=== PATIENT | male | born 1995 | race Caucasian/White ===

== ENCOUNTER 2022-03-23 10:39 | Emergency (ER) | payer SELFPAY ==
[2022-03-23] MEDS ORDERED: Morphine 4 MG/ML VIAL ONE ×2 (11:18→12:36)
[2022-03-23] MEDS ORDERED: Ketorolac Tromethamine 30 MG/ML VIAL ONE (11:19)
[2022-03-23] MEDS ORDERED: Ondansetron PF 4 MG/2 ML Vial ONE (11:19)
[2022-03-23 11:29] LABS: #Basophils 0.1 thou/uL (0.0-0.2); #Eosinphils 0.1 thou/uL (0.0-0.7); #Lymphocytes 2.7 thou/uL (1.20-3.40); #Monocytes 0.5 thou/uL (0.11-0.59); %Basophils 0.8 % (0.0-1.0); %Eosinophils 1.8 % (0.0-10.0); %Lymphocytes 36.9 % (21.0-51.0); %Monocytes 7.2 % (0.0-10.0); %Neutrophils 53.2 % (42.0-75.0); Hemoglobin 16.1 g/dL (14.0-18.0); Mean Corpuscular HGB CONC 34.1 g/dL (32.0-36.0); Mean Corpuscular Hemoglobin 30.7 pg (27.0-31.0); Mean Corpuscular Volume 90.2 fL (78.0-98.0); Mean Platelet Volume 9.3 fL (7.4-10.4); Platelet Count 173 thou/uL (130-400); RBC Distribution Width 11.9 % (11.5-14.5); Red Blood Cell (RBC) Count 5.23 mill/uL (4.70-6.10); White Blood Cell (WBC) Count 7.4 thou/uL (4.8-10.8)
[2022-03-23 11:30] LABS: ALT (SGPT) 54 U/L (8-55); AST (SGOT) 26 U/L (5-34); Albumin 4.5 g/dL (3.5-5.0); Alkaline Phosphatase 67 U/L (40-110); Anion Gap 14 mmol/L (10-20); BUN (Urea Nitrogen) 10 mg/dL (8.9-20.6); Bilirubin, Total 0.7 mg/dL (0.2-1.2); Calc. Creatinine Clearance 0 mL/min (70-130); Calcium 9.7 mg/dL (7.8-10.44); Carbon Dioxide 23 mmol/L (22-29); Chloride 103 mmol/L (98-107); Estimated GFR 119; Globulin 3.2 g/dL (2.4-3.5); Glucose 128 mg/dL (70-105); Potassium 3.4 mmol/L (3.5-5.1); Protein, Total 7.7 g/dL (6.0-8.3); Sodium 137 mmol/L (136-145)
[2022-03-23] MEDS ORDERED: Tamsulosin HCl 0.4 MG CAP PO SCH (12:45)
[2022-03-23 15:16] LABS: Bilirubin Negative (Negative); Blood, Urine 3+ (Negative); Clarity Clear (Clear); Glucose, Urine (Dipstick) 50 mg/dL (Negative); Ketone, Urine Negative (Negative); Leukocyte Negative Leu/uL (Negative); Nitrite Negative (Negative); Protein, Urine (Dipstick) 50 mg/dL (Neg-Trace); Specific Gravity, Urine 1.029 (1.002-1.036); Squamous Epithelial None Seen HPF (0-3); Urobilinogen Normal mg/dL (Less than 2); pH, Urine 7.5 (5.0-9.0)
[2022-03-23 15:24] LABS: RBC/HPF 21-50 HPF (0-3)
[2022-03-23 15:25] LABS: Bacteria/HPF None Seen HPF (None Seen); Sperm/HPF 1+ HPF (None Seen)
== END 2022-03-23 16:39 | disposition home or self-care (01) ==
LOC: EDBD 10:39 → ERS 10:39
DX: N20.1 Calculus of ureter (principal); Z87.442 Personal history of urinary calculi
CPT/HCPCS: 36415; 74176; 80053; 81003; 81015; 85025; 96374; 96375; 96376; J1885; J2270; J2405

== ENCOUNTER 2022-07-02 05:14 | Emergency (ER) | payer SELFPAY ==
[2022-07-02] MEDS ORDERED: Ondansetron PF 4 MG/2 ML Vial ONE ×2 (05:27→06:11)
[2022-07-02] MEDS ORDERED: Ketorolac Tromethamine 30 MG/ML VIAL ONE (05:27)
[2022-07-02] MEDS ORDERED: Morphine 4 MG/ML VIAL ONE (06:02)
[2022-07-02 06:23] LABS: Bacteria/HPF 1+ HPF (None Seen); Bilirubin Negative (Negative); Blood, Urine Trace (Negative); Clarity Clear (Clear); Glucose, Urine (Dipstick) Normal (Negative); Ketone, Urine Negative (Negative); Leukocyte Negative Leu/uL (Negative); Nitrite Negative (Negative); Protein, Urine (Dipstick) 20 mg/dL (Neg-Trace); Specific Gravity, Urine 1.025 (1.002-1.036); Sperm/HPF Rare HPF (None Seen); Squamous Epithelial None Seen HPF (0-3); Urobilinogen Normal mg/dL (Less than 2); WBC/HPF None Seen HPF (0-3)
[2022-07-02 07:18] LABS: ALT (SGPT) 50 U/L (8-55); AST (SGOT) 27 U/L (5-34); Albumin 3.8 g/dL (3.5-5.0); Alkaline Phosphatase 52 U/L (40-110); Anion Gap 10 mmol/L (10-20); BUN (Urea Nitrogen) 15 mg/dL (8.9-20.6); Bilirubin, Total 0.4 mg/dL (0.2-1.2); Calc. Creatinine Clearance 0 mL/min (70-130); Calcium 8.3 mg/dL (7.8-10.44); Carbon Dioxide 25 mmol/L (22-29); Chloride 109 mmol/L (98-107); Estimated GFR 127; Globulin 2.5 g/dL (2.4-3.5); Glucose 102 mg/dL (70-105); Potassium 3.4 mmol/L (3.5-5.1); Protein, Total 6.3 g/dL (6.0-8.3); Sodium 141 mmol/L (136-145)
[2022-07-02 07:38] LABS: Hemoglobin 14.6 g/dL (14.0-18.0); Mean Corpuscular HGB CONC 35.7 g/dL (32.0-36.0); Mean Corpuscular Hemoglobin 31.7 pg (27.0-31.0); Mean Corpuscular Volume 88.9 fl (78.0-98.0); Mean Platelet Volume 11.3 fL (7.4-10.4); Platelet Count 196 10x3/uL (130-400); RBC Distribution Width 11.7 % (11.5-14.5); Red Blood Cell (RBC) Count 4.62 mill/uL (4.70-6.10); White Blood Cell (WBC) Count 5.3 10x3/uL (4.8-10.8)
[2022-07-02 07:39] LABS: #Eosinphils 0.1 thou/uL (0.0-0.7); #Lymphocytes 1.9 thou/uL (1.20-3.40); #Monocytes 0.5 thou/uL (0.11-0.59); #Neutrophils 2.9 thou/uL (1.40-6.50); %Basophils 0.6 % (0.0-1.0); %Eosinophils 1.5 % (0.0-10.0); %Lymphocytes 34.8 % (21.0-51.0); %Monocytes 9.6 % (0.0-10.0); %Neutrophils 53.5 % (42.0-75.0); Platelet Clumps MODERATE; Platelet Morphology Comment Appears Adequate
== END 2022-07-02 07:11 | disposition home or self-care (01) ==
LOC: ERS 05:14
DX: R31.29 Other microscopic hematuria (principal); R10.9 Unspecified abdominal pain
CPT/HCPCS: 36415; 74176; 80053; 81003; 81015; 85025; 87086; 96374; 96375; 96376; J1885; J2270; J2405

== ENCOUNTER 2024-03-19 15:01 | Observation (INO) | payer SELFPAY ==
[2024-03-19 16:36] LABS: #Basophils 0.03 10x3/uL (0.0-0.2); %Basophils 0.4 % (0.0-1.0); %Eosinophils 0.4 % (0.0-10.0); %Lymphocytes 21.7 % (21.0-51.0); %Monocytes 6.1 % (0.0-10.0); Mean Corpuscular HGB CONC 32.6 g/dL (32.0-36.0); Mean Corpuscular Hemoglobin 30.1 pg (27.0-31.0); Mean Corpuscular Volume 92.4 fL (78.0-98.0); Mean Platelet Volume 10.9 fL (7.4-10.4); Platelet Count 245 10x3/uL (130-400); RBC Distribution Width 12.5 % (11.5-14.5); Red Blood Cell (RBC) Count 4.98 mill/uL (4.70-6.10)
[2024-03-19 16:54] LABS: ALT (SGPT) 42 U/L (8-55); AST (SGOT) 22 U/L (5-34); Albumin 4.3 g/dL (3.5-5.0); Alkaline Phosphatase 102 U/L (40-110); Anion Gap 14 mmol/L (10-20); BUN (Urea Nitrogen) 13 mg/dL (8.9-20.6); Bilirubin, Total 0.4 mg/dL (0.2-1.2); Calc. Creatinine Clearance 0 mL/min (70-130); Calcium 10.2 mg/dL (7.8-10.44); Carbon Dioxide 25 mmol/L (22-29); Chloride 103 mmol/L (98-107); Estimated GFR 121; Glucose 87 mg/dL (70-105); Potassium 3.6 mmol/L (3.5-5.1); Protein, Total 8.3 g/dL (6.0-8.3); Sodium 138 mmol/L (136-145)
[2024-03-19] MEDS ORDERED: Gabapentin 100 MG CAP ONE (20:19)
[2024-03-19] MEDS ORDERED: Piperacillin/Tazobactam 3.375 GM VIAL ONE (20:19)
[2024-03-19] MEDS ORDERED: Vancomycin 1 GM/200 ML (FROZEN) BAG ONE (20:19)
[2024-03-19] MEDS ORDERED: Ketorolac Tromethamine 30 MG (1 mL) VIAL ONE (20:19)
[2024-03-19] MEDS ORDERED: traMADol HCl 50 MG TAB PO PRN (21:37)
[2024-03-20] MEDS: HYDROcodone/Acetaminophen 5/325 mg Tablet PO PRN (01:24)
[2024-03-20] MEDS: Vancomycin 1 GM in Premix 1 BAG IVPB SCH (01:24)
[2024-03-20] MEDS: Piperacillin/Tazobactam 3.375 GM in Sodium Chloride 0.9% 100 ML IVPB SCH (01:30)
[2024-03-20 04:15] VITALS: TEMP 97.5
[2024-03-20 06:17] LABS: Vancomycin, Random 22.6 ug/mL (See Comment)
[2024-03-20] MEDS: FLU (Fluarix Triv) TS24-25(6MOS UP)/PF 45 MCG/0.5 ML Syringe IM ONE (08:12)
[2024-03-20] MEDS ORDERED: Vancomycin 1 GM in Premix 1 BAG IVPB SCH (09:00)
[2024-03-20] MEDS: Gabapentin 300 MG CAP PO PRN (12:14)
[2024-03-20 13:56] VITALS: BP 130/74
== END 2024-03-20 13:25 | disposition home or self-care (01) ==
LOC: ERS 15:01 → T4-B 21:21
PROVIDERS: ADMIT Orthopaedic Surgery; ATTEND Orthopaedic Surgery
DX: T84.69XA Infection and inflammatory reaction due to internal fixation device of other site, initial encounter (principal); L03.114 Cellulitis of left upper limb; Y83.9 Surgical procedure, unspecified as the cause of abnormal reaction of the patient, or of later complication, without mention of misadventure at the time of the procedure
CPT/HCPCS: 36415; 80053; 80202; 83605; 85025; 86141; 87040; 87070; 87077; 87186; 87205; 96374; 96375; 96376; G0378; J1885; J2543; J3370-JW

== ENCOUNTER 2024-03-21 20:59 | Emergency (ER) | payer SELFPAY ==
[2024-03-21] MEDS ORDERED: Acetaminophen 500 MG TAB ONE (22:03)
[2024-03-21] MEDS ORDERED: Morphine 4 MG/ML VIAL ONE (22:13)
[2024-03-21 22:19] LABS: #Basophils 0.03 10x3/uL (0.0-0.2); %Basophils 0.2 % (0.0-1.0); %Eosinophils 0.3 % (0.0-10.0); %Lymphocytes 10.3 % (21.0-51.0); %Neutrophils 83.8 % (42.0-75.0); Hematocrit 41.6 % (42.0-52.0); Hemoglobin 14.2 g/dL (14.0-18.0); Mean Corpuscular HGB CONC 34.1 g/dL (32.0-36.0); Mean Corpuscular Hemoglobin 30.1 pg (27.0-31.0); Mean Corpuscular Volume 88.3 fL (78.0-98.0); Mean Platelet Volume 11.7 fL (7.4-10.4); Platelet Count 138 10x3/uL (130-400); RBC Distribution Width 12.5 % (11.5-14.5); Red Blood Cell (RBC) Count 4.71 mill/uL (4.70-6.10)
[2024-03-21] MEDS ORDERED: Ondansetron PF 4 MG/2 ML Vial ONE (22:19)
[2024-03-21 23:30] LABS: ALT (SGPT) 38 U/L (8-55); AST (SGOT) 28 U/L (5-34); Albumin 4.1 g/dL (3.5-5.0); Alkaline Phosphatase 91 U/L (40-110); Anion Gap 15 mmol/L (10-20); BUN (Urea Nitrogen) 12 mg/dL (8.9-20.6); Bilirubin, Total 0.4 mg/dL (0.2-1.2); Calc. Creatinine Clearance 0 mL/min (70-130); Carbon Dioxide 23 mmol/L (22-29); Chloride 102 mmol/L (98-107); Estimated GFR 95; Glucose 115 mg/dL (70-105); Potassium 3.9 mmol/L (3.5-5.1); Protein, Total 8.1 g/dL (6.0-8.3); Sodium 136 mmol/L (136-145)
[2024-03-22] MEDS ORDERED: Doxycycline 100 MG CAP ONE (00:33)
[2024-03-22] MEDS ORDERED: HYDROcodone/Acetaminophen 5/325 mg Tablet ONE (00:34)
== END 2024-03-22 00:48 | disposition home or self-care (01) ==
LOC: ERS 20:59
DX: R50.9 Fever, unspecified (principal)
CPT/HCPCS: 36415; 80053; 83605; 85025; 86141; 87428; 96374; 96375; J2272; J2405; J3490; J7070

== ENCOUNTER 2024-04-01 22:32 | Inpatient (IN) | payer SELFPAY ==
[~2024-04-01 22:32] MED LIST: Iopamidol 370 76% 100 ML VIAL ONE
[2024-04-01 23:02] LABS: #Basophils Less than 0.03 10x3/uL (0.0-0.2); #Eosinophils Less than 0.03 10x3/uL (0.0-0.7); %Basophils 0.1 % (0.0-1.0); %Eosinophils 0.1 % (0.0-10.0); %Lymphocytes 7.7 % (21.0-51.0); %Monocytes 1.1 % (0.0-10.0); %Neutrophils 90.2 % (42.0-75.0); Hematocrit 41.5 % (42.0-52.0); Hemoglobin 14.6 g/dL (14.0-18.0); Mean Corpuscular HGB CONC 35.2 g/dL (32.0-36.0); Mean Corpuscular Hemoglobin 30.2 pg (27.0-31.0); Mean Corpuscular Volume 85.9 fL (78.0-98.0); Mean Platelet Volume 11.3 fL (7.4-10.4); Platelet Count 117 10x3/uL (130-400); RBC Distribution Width 12.5 % (11.5-14.5); Red Blood Cell (RBC) Count 4.83 mill/uL (4.70-6.10)
[2024-04-01] MEDS ORDERED: Acetaminophen 500 MG TAB ONE (23:05)
[2024-04-01 23:17] LABS: ALT (SGPT) 30 U/L (8-55); AST (SGOT) 24 U/L (5-34); Albumin 4.2 g/dL (3.5-5.0); Alkaline Phosphatase 94 U/L (40-110); Anion Gap 18 mmol/L (10-20); BUN (Urea Nitrogen) 14 mg/dL (8.9-20.6); Bilirubin, Total 0.5 mg/dL (0.2-1.2); CK (CPK) 35 U/L (30-200); Calc. Creatinine Clearance 0 mL/min (70-130); Calcium 9.3 mg/dL (7.8-10.44); Carbon Dioxide 20 mmol/L (22-29); Chloride 101 mmol/L (98-107); Estimated GFR 106; Glucose 113 mg/dL (70-105); Potassium 3.4 mmol/L (3.5-5.1); Protein, Total 8.2 g/dL (6.0-8.3); Sodium 136 mmol/L (136-145)
[2024-04-01 23:21] LABS: Platelet Adequacy Comment Platelets Normal; Polychromasia SLIGHT = 2-3 cells HPF (0-2)
[2024-04-01] MEDS ORDERED: Ketorolac Tromethamine 30 MG (1 mL) VIAL ONE (23:51)
[2024-04-01] MEDS ORDERED: diphenhydrAMINE 50 MG/ML VIAL ONE (23:51)
[2024-04-02 00:18] LABS: Bacteria/HPF None Seen HPF (None Seen); Bilirubin Negative (Negative); Blood, Urine Negative (Negative); CAUTI Indications for Culture Dysuria,urgency,freq; Clarity Clear (Clear); Glucose, Urine (Dipstick) Normal (Negative); Ketone, Urine Negative (Negative); Leukocyte Negative Leu/uL (Negative); Nitrite Negative (Negative); Protein, Urine (Dipstick) Negative (Neg-Trace); RBC/HPF 0-3 HPF (0-3); Specific Gravity, Urine 1.002 (1.002-1.036); Squamous Epithelial None Seen HPF (0-3); Urobilinogen Normal mg/dL (Less than 2); WBC/HPF 0-3 HPF (0-3)
[2024-04-02 00:25] LABS: Urine Culture Reflex No No
[2024-04-02] MEDS ORDERED: fentaNYL 50 mcg/mL 1 mL Vial SLOW IVP PRN (01:23)
[2024-04-02] MEDS: Vancomycin (BATCH) 2 GM in Premix 1 BAG IVPB SCH (02:09)
[2024-04-02] MEDS: HYDROcodone/Acetaminophen 5/325 mg Tablet PO PRN (02:51)
[2024-04-02] MEDS: Sodium Chloride 0.9% 1,000 ML IV SCH (02:52)
[2024-04-02] MEDS: guaiFENesin ER 600 MG TAB PO SCH ×2 (03:16→10:10)
[2024-04-02] MEDS: Loratadine 10 MG TAB PO SCH (03:16)
[2024-04-02 03:19] VITALS: BMI 24.3
[2024-04-02] MEDS ORDERED: Loratadine 10 MG TAB PO SCH (09:00)
[2024-04-02] MEDS ORDERED: Famotidine/PF 20 mg/2ml Vial ONE (10:29)
[2024-04-02] MEDS ORDERED: fentaNYL 50 mcg/mL 1 mL Vial ONE ×2 (10:35→11:14)
[2024-04-02] MEDS ORDERED: Lidocaine 2% PF 5 ML VIAL ONE (10:35)
[2024-04-02] MEDS ORDERED: PROPOFOL 20 ML ONE (10:35)
[2024-04-02] MEDS ORDERED: SUCCINYLCHOLINE/SOD CL,ISO/PF 200 MG/10 ML SYRINGE FS ONE (10:36)
[2024-04-02] MEDS ORDERED: Meperidine HCl/PF 25 MG (1 mL) VIAL ONE ×2 (10:38→12:46)
[2024-04-02] MEDS ORDERED: CEFAZOLIN 2 GM VIAL ONE (10:43)
[2024-04-02] MEDS ORDERED: Dexamethasone 4 mg/ml Vial ONE (11:18)
[2024-04-02] MEDS ORDERED: Metoclopramide HCl 10 MG (2 mL) VIAL ONE (11:18)
[2024-04-02] MEDS ORDERED: Ketorolac Tromethamine 30 MG (1 mL) VIAL ONE (11:18)
[2024-04-02] MEDS ORDERED: Ondansetron PF 4 MG/2 ML Vial ONE (11:18)
[2024-04-02] MEDS ORDERED: Ondansetron HCl/PF 4 MG/2 ML Vial IVP PRN ×2 (12:04→13:15)
[2024-04-02] MEDS ORDERED: Promethazine HCl 25 MG/ML VIAL IM PRN ×2 (12:04→13:15)
[2024-04-02] MEDS ORDERED: Promethazine HCl 25 MG/ML VIAL ONE (12:46)
[2024-04-02] MEDS ORDERED: Non-Formulary Medication 1 EACH PO PRN (13:10)
[2024-04-02] MEDS ORDERED: HYDROmorphone 2 MG/ML VIAL SLOW IVP PRN (13:15)
[2024-04-02] MEDS ORDERED: Meperidine HCl/PF 25 MG/ML VIAL IV PRN (13:15)
[2024-04-02] MEDS: CEFAZOLIN 2 GM in Sodium Chloride 0.9% 100 ML IVPB SCH (21:00)
[2024-04-03 04:56] LABS: #Basophils Less than 0.03 10x3/uL (0.0-0.2); #Eosinophils Less than 0.03 10x3/uL (0.0-0.7); %Basophils 0.1 % (0.0-1.0); %Eosinophils 0.1 % (0.0-10.0); %Lymphocytes 11.1 % (21.0-51.0); %Monocytes 5.7 % (0.0-10.0); %Neutrophils 82.7 % (42.0-75.0); Hematocrit 34.2 % (42.0-52.0); Hemoglobin 11.8 g/dL (14.0-18.0); Mean Corpuscular HGB CONC 34.5 g/dL (32.0-36.0); Mean Corpuscular Hemoglobin 29.4 pg (27.0-31.0); Mean Corpuscular Volume 85.1 fL (78.0-98.0); Platelet Count 136 10x3/uL (130-400); RBC Distribution Width 12.6 % (11.5-14.5); Red Blood Cell (RBC) Count 4.02 mill/uL (4.70-6.10)
[2024-04-03] MEDS: Loratadine 10 MG TAB PO SCH (08:48)
[2024-04-03] MEDS: Ketorolac Tromethamine 30 MG (1 mL) VIAL IVP PRN (12:01)
[2024-04-03] MEDS: CEFAZOLIN 2 GM in Sodium Chloride 0.9% 100 ML IVPB SCH (16:43)
[2024-04-04 05:47] LABS: #Basophils Less than 0.03 10x3/uL (0.0-0.2); %Basophils 0.2 % (0.0-1.0); %Eosinophils 3.7 % (0.0-10.0); %Lymphocytes 45.6 % (21.0-51.0); %Monocytes 6.5 % (0.0-10.0); %Neutrophils 43.8 % (42.0-75.0); Hematocrit 37.3 % (42.0-52.0); Hemoglobin 12.4 g/dL (14.0-18.0); Mean Corpuscular HGB CONC 33.2 g/dL (32.0-36.0); Mean Corpuscular Hemoglobin 29.5 pg (27.0-31.0); Mean Corpuscular Volume 88.6 fL (78.0-98.0); Mean Platelet Volume 10.4 fL (7.4-10.4); Platelet Count 126 10x3/uL (130-400); RBC Distribution Width 12.9 % (11.5-14.5); Red Blood Cell (RBC) Count 4.21 mill/uL (4.70-6.10)
[2024-04-04 08:51] VITALS: TEMP 98
[2024-04-04] MEDS: Doxycycline 100 MG CAP PO SCH (12:20)
[2024-04-04 15:03] VITALS: BP 132/82
== END 2024-04-04 15:01 | disposition home or self-care (01) | DRG 507 ==
LOC: ERS 22:32 → SURG B 04-02 01:17
PROVIDERS: ADMIT Orthopaedic Surgery; ATTEND Orthopaedic Surgery
PROC: 3E03329 Introduction of Other Anti-infective into Peripheral Vein, Percutaneous Approach (ICD-10-PCS; 2024-04-01)
PROC: 0RPM04Z Removal of Internal Fixation Device from Left Elbow Joint, Open Approach (ICD-10-PCS; principal; 2024-04-02)
DX: T84.59XA Infection and inflammatory reaction due to other internal joint prosthesis, initial encounter (principal); A41.9 Sepsis, unspecified organism; L03.114 Cellulitis of left upper limb; Z79.899 Other long term (current) drug therapy; Z98.890 Other specified postprocedural states
CPT/HCPCS: 36415; 74176; 80053; 81001; 82550; 83605; 84145; 85025; 87040; 87070; 87077; 87186; 87205; 93005; 96361; 96374; 96375; J1100; J1200; J1885; J2175; J2405; J2550; J2704; J2765; J3010; J3370; J3490; J7030; Q9967